=== PATIENT | female | born 1975 | race Caucasian/White ===

== ENCOUNTER 2023-03-06 08:20 | Outpatient (CLI) | payer OTHER, SELFPAY ==
--- NOTE | 2023-03-06 | MM_ITS ---
WS: [id number] DIAGNOSTIC BILATERAL DIGITAL BREAST TOMOSYNTHESIS MAMMOGRAPHY WITH CAD and implant displacement views . RIGHT breast ultrasound, limited HISTORY: LUMP IN RT BREAST COMPARISON: None available. TECHNIQUE: Bilateral craniocaudad, mediolateral oblique, and mediolateral views are submitted with to mosynthesis and SM. Implant displacement views. Spot compression views RIGHT MLO. Computer aided dete ction utilized. Breast composition: The breasts are heterogeneously dense, which may obscure small masses. Prepectora l implants. The implants are intact. No suspicious masses or calcifications. Triangular marker placed at the site of the palpable abnormality shows no underlying abnormality. RIGHT breast ultrasound, limited. There is an elliptical shaped mass which is nearly isoechoic with the adjacent soft tissues correspon ding to the palpable abnormality. This is along the superior implant. This mass measures 3.6 x 2.9 x 1.0 cm. Very benign in appearance. IMPRESSION: MM/[place] [id number] BI-RADS: 2-Benign FOLLOW UP: 1 Year Follow-up Palpable area adjacent to the superior RIGHT breast implant corresponds to a be nign-appearing soft tissue mass which is most consistent with a lipoma.
--- NOTE | 2023-03-06 08:45 | US_ITS ---
WS: [id number] DIAGNOSTIC BILATERAL DIGITAL BREAST TOMOSYNTHESIS MAMMOGRAPHY WITH CAD and implant displacement views . RIGHT breast ultrasound, limited HISTORY: LUMP IN RT BREAST COMPARISON: None available. TECHNIQUE: Bilateral craniocaudad, mediolateral oblique, and mediolateral views are submitted with to mosynthesis and SM. Implant displacement views. Spot compression views RIGHT MLO. Computer aided dete ction utilized. Breast composition: The breasts are heterogeneously dense, which may obscure small masses. Prepectora l implants. The implants are intact. No suspicious masses or calcifications. Triangular marker placed at the site of the palpable abnormality shows no underlying abnormality. RIGHT breast ultrasound, limited. There is an elliptical shaped mass which is nearly isoechoic with the adjacent soft tissues correspon ding to the palpable abnormality. This is along the superior implant. This mass measures 3.6 x 2.9 x 1.0 cm. Very benign in appearance. IMPRESSION: US/US breast RT limited* [id number] BI-RADS: 2-Benign FOLLOW UP: 1 Year Follow-up Palpable area adjacent to the superior RIGHT breast implant corresponds to a be nign-appearing soft tissue mass which is most consistent with a lipoma.
== END 2023-03-06 08:21 | disposition home or self-care (01) ==
PROVIDERS: PCP Nurse Practitioner Family; Visit Provider Nurse Practitioner Family
DX: N63.10 Unspecified lump in the right breast, unspecified quadrant (principal)
CPT/HCPCS: 76642; 77062; G0279

== ENCOUNTER 2024-04-18 10:05 | Outpatient (CLI) | payer OTHER, SELFPAY ==
--- NOTE | 2024-04-18 10:06 | MM_ITS ---
WS: [id number] BILATERAL SCREENING DIGITAL BREAST MAMMOGRAPHY WITH OBINNA DISPLACEMENT VIEWS. CAD PERFORMED. HISTORY: SCREENING COMPARISON: 03/06/2023 Bilateral craniocaudal and mediolateral oblique views are performed with tomosynthesis and SM. Obinna displacement views in CC and MLO projection also performed. Breasts composition: There are scattered areas of fibroglandular density. Prepectoral implants are i ntact. No suspicious mass or calcification. No capsular contraction surrounding the implants. There i s no collapse or extravasation. MM/MM scr BI tomosynthesis [id number] IMPRESSION: BI-RADS: 2 - Benign. FOLLOW-UP: 1 Year Follow-up
== END 2024-04-18 10:06 | disposition home or self-care (01) ==
LOC: RAD 10:06
PROVIDERS: PCP Nurse Practitioner Family; Visit Provider Nurse Practitioner Family
DX: Z12.31 Encounter for screening mammogram for malignant neoplasm of breast (principal); R92.323 Mammographic fibroglandular density, bilateral breasts; Z98.82 Breast implant status
CPT/HCPCS: 77063; 77067

== ENCOUNTER → 2025-04-13 15:36 | Outpatient (BNVA) | payer OTHER, SELFPAY | PROVIDERS: PCP Family Medicine; Visit Provider Family Medicine | DX: Z13.6 Encounter for screening for cardiovascular disorders (principal) | CPT/HCPCS: 80053; 80061; 84439; 84443; 85025 ==

== ENCOUNTER 2025-04-30 08:51 | Outpatient (CLI) | payer OTHER, SELFPAY ==
--- NOTE | 2025-04-30 08:55 | MM_ITS ---
WS: [id number] BILATERAL SCREENING DIGITAL BREAST MAMMOGRAPHY WITH OBINNA DISPLACEMENT VIEWS. CAD PERFORMED. HISTORY: SCREENING COMPARISON: 04/18/2024, 03/06/2023, Bilateral craniocaudal and mediolateral oblique views are performed with tomosynthesis and SM. Obinna displacement views in CC and MLO projection also performed. Breasts composition: The breasts are heterogeneously dense, which may obscure small masses. Asymmetries are stable within each breast. Prepectoral implants are intact. No suspicious calcifications and no implant rupture. No grouping of calcifications. MM/MM [facility] tomosynthesis [id number] IMPRESSION: BI-RADS: 2 - Benign FOLLOW-UP: 1 Year Follow-up
== END 2025-04-30 08:52 | disposition home or self-care (01) ==
LOC: RAD 08:52
PROVIDERS: PCP Family Medicine; Visit Provider Family Medicine
DX: Z12.31 Encounter for screening mammogram for malignant neoplasm of breast (principal); R92.333 Mammographic heterogeneous density, bilateral breasts; N64.89 Other specified disorders of breast; Z98.82 Breast implant status
CPT/HCPCS: 77063; 77067